=== PATIENT | female | born 2005 | race African-American/Black ===

== ENCOUNTER 2025-06-27 18:03 | Emergency (ER) | payer OTHER, SELFPAY ==
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
[2025-06-27 18:05] VITALS: BP 119/74; PULSE 79; RESP 18; TEMP 36.8; O2SAT 100
[2025-06-27] MEDS: ACETAMINOPHEN 500 MG TABLET 1000 MG PO (19:56)
[2025-06-27] MEDS: CYCLOBENZAPRINE HCL 10 MG TABLET PO (19:56)
[2025-06-27] MEDS: KETOROLAC 30 MG/ML VIAL (*BKC) IM (19:57)
[2025-06-27 20:36] LABS: BEDSIDEPREGUCG Negative (Negative)
[2025-06-27 22:09] VITALS: BP 118/76; PULSE 68; RESP 20; TEMP 36.8; O2SAT 100
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
== END 2025-06-27 22:10 | disposition home or self-care (01) ==
DX: S29.9XXA Unspecified injury of thorax, initial encounter (principal); S19.9XXA Unspecified injury of neck, initial encounter; V49.40XA Driver injured in collision with unspecified motor vehicles in traffic accident, initial encounter
CPT/HCPCS: 72125; 72128; 81025; 96372; 99284; A9270; J1885